=== PATIENT | male | born 1980 | race Caucasian/White ===

== ENCOUNTER 2023-04-05 14:05 | Outpatient (CLI) | payer OTHER ==
--- NOTE | 2023-04-05 14:50 | Sleep Patient Instructions ---
Sleep Center Visit Summary - Patient Visit Information Reason for Visit: Initial consult for evaluation of sleep disordered breathing and other sleep issues. - Patient Instructions Instructions Attached: Sleep Study Additional Instructions: You will be completing a sleep study, either an in-lab polysomnography (PSG) or home sleep study (HST). You will follow-up in the sleep care office after the sleep study is completed to hear the results and talk about therapy, if needed. You will be called by our office staff to schedule this appointment, but you may contact us with any questions. - Clinic Information Contact: [facility] [address] [place] [address] [email or web address] T: [phone]
--- NOTE | 2023-04-05 14:50 | SLEEP CARE CONSULTATION ---
Information from patient questionnaire entered by Amberly Katz. I have reviewed and concur with the information entered by Amberly Katz. This document represents the service I personally performed and the decisions made by me, Esha Wheeler ARNP. History of Present Illness Service Date and Time: 04/05/2023 1405 Reason for Visit: New patient Chief Complaint: reports: Unrefreshed sleep, Snoring, Fatigue, Frequent awakenings at night Date of Onset: 14YRS Usual bedtime: 930-10AM Time it takes to fall asleep: 5-20MIN Snores at night: Yes Observed to quit breathing while asleep: Yes Sleeps alone due to snoring: No Number of times waking at night: 2-3 Reasons for waking at night: reports: Snoring, Bathroom, Other (NOISE AND UNKNOWN). denies: Gasping for air Toss, Turn, or Twitch while sleeping: Yes Recalls having dreams: Yes Usually gets out of bed at: 530AM Feels refreshed in the morning: No Morning headache: No Sleepy or fatigued during the day: Yes Ever fallen asleep while driving: Yes (drowsy driving on longer drives; no accidents) Takes day naps: No Dreams during day naps: No Prior sleep studies: No Additional HPI information: I had the pleasure of seeing MILIND WANG today regarding the possibility of him having a sleep disorder. His current complaints are fatigue, frequent night awakenings, snoring and unrefreshed sleep. He says last year his has noticed that when he sleeps he is snoring and talking in his sleep. He does not feel rested in the morning. His has noticed a lot of snoring through the years and he snored more when he has lost abut 30 pounds. He was working out a lot at that time. He did not dream during that time. He says when he has a drink on weekends he will remember dreaming. He has been on Strattera for ADD in the last few months and is remembering dreaming more. He has changed his diet and lost 7 pounds in last couple months. His has noticed some pauses in breathing as well. - Parasomnia Symptoms Ever been unable to move upon waking from sleep: No Walks in sleep: No Talks in sleep: Yes Ever acted out dreams in sleep: No Ever felt weak in the knees when startled or emotional: Yes (has not fallen to ground) Bothered by creepy, crawly, restless sensations in legs: No Problems with memory or concentration: Yes (both) Subjective Initial Harvey Sleepiness Scale score: 17 (04/05/23) Past Medical History Past Medical History: reports: Hypertension, Attention deficit Social History The patient's occupation is a AM. Patient is and lives in [place]. Have you smoked in the past 12 months: No Alcohol use: Yes Alcohol amount and frequency: 2 2X A WEEK Caffeine use: Yes Caffeine amount and frequency: 8OZ DAILY Family History Family history of sleep disordered breathing: No Family Hx Sleep Apnea: Mother: Snoring Allergies and Home Medications Known drug allergies: No Drug allergies reviewed: Yes Home medication list reviewed: Yes (as listed) Allergy and home medication list: Allergies No Known Drug Allergies Allergy (Verified 04/05/23 14:10) Home Medications Acetaminophen [Tylenol] See Rx Instructions .ROUTE .COMPLEX 04/05/23 [History] Ashwagandha Extract [Ashwagandha-35] See Rx Instructions .ROUTE .COMPLEX 04/05/23 [History] Atomoxetine HCl [Strattera] See Rx Instructions .ROUTE .COMPLEX 04/05/23 [History] Cologen See Rx Instructions .ROUTE .COMPLEX 04/05/23 [History] Glycine Urologic Solution [Glycine] See Rx Instructions .ROUTE .COMPLEX 04/05/23 [History] Green Mix See Rx Instructions .ROUTE .COMPLEX 04/05/23 [History] Loratadine [Claritin] See Rx Instructions .ROUTE .COMPLEX 04/05/23 [History] Losartan [Cozaar] See Rx Instructions .ROUTE .COMPLEX 04/05/23 [History] Nac/Ala/Milk Thistle/Selenomet [Liver Protect Capsule] See Rx Instructions .ROUTE .COMPLEX 04/05/23 [History] [place]-3/Dha/Epa/Fish Oil [Fish Oil 1,000 mg Softgel] See Rx Instructions .ROUTE .COMPLEX 04/05/23 [History] Protein Powder See Rx Instructions .ROUTE .COMPLEX 04/05/23 [History] Psyllium Husk [Fiber] See Rx Instructions .ROUTE .COMPLEX 04/05/23 [History] Turmeric Root Extract [Turmeric Curcumin] See Rx Instructions .ROUTE .COMPLEX 04/05/23 [History] Zinc Oxide [Zinctral] See Rx Instructions .ROUTE .COMPLEX 04/05/23 [History] Review of Systems Weight gain over past 5 years: 30 Weight loss over past 5 years: 30 Cardiovascular: reports: high blood pressure Gastrointestinal: denies: heartburn Neurological: denies: headaches Psychiatric: denies: anxiety, depression Ear/Nose/Throat: reports: tonsillectomy, wisdom teeth removed Immunologic: reports: allergies to food or environment Physical Exam Vital signs obtained and entered by: AMBERLY Mcgraw MA Blood Pressure: 147/96 (RIGHT ARM) Cuff size: regular Heart Rate: 85 O2 Saturation: 97 Height: 6 ft (PER PT) Weight: 231 lb (PER PT) Body Mass Index: 31.3 BMI Classification: Obese Neck circumference: 17.75 Soft palate: long Hard palate: normal Uvula: normal Uvula visualization: 100% Mallampati Class I Tongue: enlarged in size with teeth rm on lateral edges Tonsils: absent bilaterally Neck: normal w/o lymphadenopathy or thyromegaly Heart: regular rate and rhythm Lungs: clear bilaterally Impression and Plan 1. Suspected Obstructive Sleep Apnea-Hypopnea Syndrome, as suggested by a h istory of loud and irregular snoring, frequent awakening during the night, unrefreshed sleep, cognitive impairment, and excessive daytime sleepiness. Narrow oropharynx and obesity are common predisposing factors for obstructive sleep apnea-hypopnea syndrome. I recommend proceeding to polysomnography to confirm the diagnosis and to assess severity. If the patient has significant sleep disordered breathing, a manual CPAP titration study will also be performed to find the optimal treatment pressure. I informed the patient of what the sleep studies involve and after some discussion, obtained agreement to proceed. The pathophysiology of obstructive sleep apnea-hypopnea syndrome was discussed with the patient and health risks of cardiovascular and cerebrovascular disease if not treated. Risks of drowsy driving discussed in detail and patient advised to avoid long distance driving and to parts puller at the first sign of drowsiness. Patient agreed to plan. * Schedule polysomnography +- manual CPAP titration study and return in 1-2 weeks after the study to discuss result and initiate therapy. * Avoid long distance driving or driving when feeling sleepy. * Avoid alcohol, sedative and muscle relaxant around bedtime. * Attempt to lose weight. * Review instructions provided by trained office staff on how to prepare for the sleep study. * Return for follow-up after sleep study completed. Counseling Topics: Weight loss health impact Follow up with Sleep Care in: other (to review results of sleep study) Plan: PSG Visit Type: In Office Time Spent with Patient (minutes): 35 Provider Statement: I spent 100% of the Face to Face Visit with the patient with greater than 50% spent counseling the patient and coordination of care.
[2023-04-05 15:05] VITALS: BP 147/96; O2SAT 97
== END 2023-04-05 14:06 | disposition home or self-care (01) ==
LOC: SC 14:05
PROVIDERS: ATTEND Nurse Practitioner Family
DX: R06.83 Snoring (principal); G47.8 Other sleep disorders; R41.89 Other symptoms and signs involving cognitive functions and awareness; G47.10 Hypersomnia, unspecified; E66.9 Obesity, unspecified; Z68.31 Body mass index [BMI] 31.0-31.9, adult
CPT/HCPCS: 99203; 99212

== ENCOUNTER 2023-05-22 07:57 | Outpatient (CLI) | payer OTHER ==
--- NOTE | 2023-05-22 13:05 | Ultrasound Report ---
PROCEDURE: Abdomen Limited INDICATIONS: ABN SERUM ENZYME LEVELS TECHNIQUE: Real-time focused scanning was performed of the abdomen, with image documentation. COMPARISONS: None. FINDINGS: Liver: Liver is normal in size. Liver parenchyma is heterogeneous and diffusely echogenic. Left hepa tic lobe anechoic/hypoechoic lesion with no internal vascularity measuring 0.9 x 0.6 x 0.8 cm is too small to characterize. Main portal vein is patent with hepatopedal flow. Gallbladder: Unremarkable. Biliary ducts: Intrahepatic bile ducts are non-dilated. Extrahepatic bile duct caliber measures 4.4 mm. Normal is 6-7 mm or less in diameter, or 10 mm or less post-cholecystectomy. Pancreas: Visualized portions of the pancreas are sonographically normal. Of note, the distal body /tail is not well seen. Right kidney: Normal in size and echotexture. Right kidney measures 11.3 cm long. No hydronephrosis or nephrolithiasis. No solid masses. No complex renal cystic lesions which require follow-up. Miscellaneous: No free abdominal fluid. IMPRESSION: 1.Liver parenchyma is heterogeneous and diffusely echogenic which may be seen in the setting of paren chymal disease such as steatosis. 2.Normal gallbladder. Reviewed by: Gomez Kenney MD on 05/22/2023 1:04 PM PDT Approved by: Gomez Kenney MD on 05/22/2023 1:04 PM PDT Station ID: [id number]
== END 2023-05-22 07:58 | disposition home or self-care (01) ==
LOC: DI 07:57
PROVIDERS: ATTEND General Practice
DX: R74.8 Abnormal levels of other serum enzymes (principal)